=== PATIENT | female | born 1990 | race Caucasian/White ===

== ENCOUNTER 2018-05-10 10:41 | Emergency (ER) | payer SELFPAY ==
[2018-05-10 11:14] VITALS: BP 150/103
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
--- NOTE | 2018-05-10 12:13 | RAD ---
HISTORY: Pain and numbness. Twist inj COMPARISONS: None VIEWS: 4, Frontal, lateral, oblique, and scaphoid deviation views of the left wrist FINDINGS: BONE DENSITY: Normal. BONES: There is no displaced fracture. JOINTS: There is no arthropathy. ALIGNMENT: There is no dislocation. SOFT TISSUES: Unremarkable. OTHER FINDINGS: None. IMPRESSION: NO ACUTE OSSEOUS INJURY. IF SYMPTOMS PERSIST, RECOMMEND REPEAT IMAGING.
== END 2018-05-10 14:30 | disposition home or self-care (01) ==
LOC: UCEAST 10:41
DX: R20.0 Anesthesia of skin (principal); S69.92XA Unspecified injury of left wrist, hand and finger(s), initial encounter; W50.2XXA Accidental twist by another person, initial encounter; Y93.F9 Activity, other caregiving; Y92.129 Unspecified place in nursing home as the place of occurrence of the external cause; Y99.0 Civilian activity done for income or pay; I10 Essential (primary) hypertension; F41.9 Anxiety disorder, unspecified; F17.210 Nicotine dependence, cigarettes, uncomplicated
CPT/HCPCS: 99212; G0463